=== PATIENT | male | born 1955 | race Caucasian/White ===

== ENCOUNTER 2016-10-10 17:02 | Inpatient (IN) | payer MEDICARE ==
[~2016-10-10] VITALS: Ht 193 cm; Wt 205.0 kg
[2016-10-10] VITALS (244 sets, daily range): BP systolic 150–153; BP diastolic 73–74; PULSE 92–100; TEMP 98.1–98.5; O2SAT 64–100
[~2016-10-10 17:02] MED LIST: ASPI325T6 PO; COLACE 100100 MG/CAP PO; DAZIDOX10 MG PO; FLEXERIL 1010 MG/TAB PO; GLUCOPHAGE1000 MG PO; IPRATROPIUM BROM3 M1 IH; K-DUR20 MEQ PO; LANTUS SOLOS100 U/ML SQ; LASIX 80MG TABL80 MG PO; LINZESS145CAP PO; LIPITOR 40MG TA40 MG PO; LOPRESSOR 225 MG/TAB PO; MILK OF MA400 MG/52 PO; NEXIUM 40MG40 MG PO; NITROSTAT0.4 MG/TAB SL; NYAMYC100000 U/G TOP; OXYCONTIN 20MG20 MG PO; OXYCONTIN 80MG80 MG PO; PLAVIX 75MG TAB75 MG PO; PREDNISONE10 MG PO; RESTORIL 1515 MG/CAP PO; ROXICODONE 55 MG/TAB PO; SORE THROAT LOZ1 LO1 MM; SUDAFED30 MG PO; TRIAMCINOLONE A15 G3 TP; TYLENOL 325MG325 MG PO; VICTOZA6 MG/ML SQ; VIIBRYD20 MG PO; XANAX 1MG1 MG PO; ZOFRAN 4MG T4 MG/TAB PO
[2016-10-10] MEDS ORDERED: XANAX 1MG1 MG PO (18:36)
[2016-10-10] MEDS ORDERED: TOPROL XL 50MG50 MG PO (18:36)
[2016-10-10] MEDS ORDERED: NITROSTAT0.4 MG/TAB SL (18:37)
[2016-10-10] MEDS ORDERED: RESTORIL 1515 MG/CAP PO (18:38)
[2016-10-10] MEDS ORDERED: ASPIRIN E.C. 8181 MG PO (18:39)
[2016-10-10] MEDS ORDERED: FERROUS SU325 MG/TAB PO (18:40)
[2016-10-10] MEDS ORDERED: ASPI325T6 PO (18:40)
[2016-10-10] MEDS ORDERED: VITAMIN D32000 IU PO (18:41)
[2016-10-10] MEDS ORDERED: VICTOZA6 MG/ML SQ (18:42)
[2016-10-10] MEDS ORDERED: METHYL FOLATE (18:43)
[2016-10-10 20:05] LABS: B-TYPE NATRIURETIC PEPTIDE 132 pg/mL (0-125)
[2016-10-10 20:06] LABS: TROPONIN-I < 0.012 ng/mL (0.000-0.034)
[2016-10-10 20:24] LABS: THYROID STIMULATING HORMONE 0.418 uIU/mL (0.465-4.680)
[2016-10-11] VITALS (464 sets, daily range): BP systolic 129–143; BP diastolic 50–84; PULSE 70–101; TEMP 97.8–98.9; O2SAT 50–100
[2016-10-11 06:55] LABS: BASO % 0.5 % (0.0-2.0); EOS % 0.5 % (0-4.0); GRAN # 1.7 (1.4-6.5); LYMPH # 1.4 (1.2-3.4); LYMPH % 37.3 % (20.0-51.0); MEAN CELL VOLUME 79 fl (80.0-100.0); MEAN CORPUSCULAR HGB CONC 32 g/dl (33.0-37.0); MEAN PLATELET VOLUME 10.5 fl (7.4-10.4); MONO # 0.5 (0.1-0.6); MONO % 14.4 % (1.7-9.3); PLATELET COUNT 81 K/mm3 (130-400); RED BLOOD COUNT 4.17 M/mm3 (4.20-5.60); REDCELL DISTRIBUTION WIDTH-CV 16.3 % (11.5-14.5); WHITE BLOOD COUNT 3.7 K/mm3 (4.8-10.8)
[2016-10-11 07:06] LABS: CALCIUM 8.4 mg/dL (8.4-10.2); CREATININE, serum 0.6 mg/dL (0.66-1.25); POTASSIUM 3.8 mmol/L (3.4-5.0)
[2016-10-11 07:07] LABS: HEMATOCRIT 32.8 % (42.0-52.0); HEMOGLOBIN 10.4 g/dl (13.5-18.0); MEAN CORPUSCULAR HEMOGLOBIN 25 pg (27.0-31.0)
[2016-10-11 20:29] LABS: PH 6 (5-8); SQUAMOUS EPITHELIAL None Seen /hpf; URINE APPEARANCE Clear; URINE BACTERIA None Seen /hpf; URINE BILIRUBIN Negative (NEGATIVE); URINE BLOOD 1+ (NEGATIVE); URINE COLOR Yellow; URINE GLUCOSE 1+ (NEGATIVE); URINE KETONE Negative (NEGATIVE); URINE RBC 0-2 /hpf; URINE UROBILINOGEN >=4.0 mg/dL (NEGATIVE); URINE WBC 0-2 /hpf
[2016-10-12 02:28] VITALS: BP 133/52; PULSE 71; TEMP 98.1
[2016-10-12 07:18] LABS: BASO % 0.5 % (0.0-2.0); EOS # 0.1 (0.0-0.7); GRAN % 49.4 % (42.2-75.2); LYMPH # 1.5 (1.2-3.4); MEAN CELL VOLUME 81 fl (80.0-100.0); MEAN CORPUSCULAR HGB CONC 31 g/dl (33.0-37.0); MEAN PLATELET VOLUME 10.2 fl (7.4-10.4); MONO # 0.4 (0.1-0.6); MONO % 9.6 % (1.7-9.3); PLATELET COUNT 79 K/mm3 (130-400); RED BLOOD COUNT 4.17 M/mm3 (4.20-5.60); REDCELL DISTRIBUTION WIDTH-CV 16.7 % (11.5-14.5)
[2016-10-12 07:34] LABS: CALCIUM 8.5 mg/dL (8.4-10.2); CREATININE, serum 0.79 mg/dL (0.66-1.25); POTASSIUM 3.5 mmol/L (3.4-5.0)
[2016-10-12 07:35] LABS: HEMATOCRIT 33.6 % (42.0-52.0); HEMOGLOBIN 10.4 g/dl (13.5-18.0); MEAN CORPUSCULAR HEMOGLOBIN 25 pg (27.0-31.0)
[2016-10-12 08:04] VITALS: BP 123/54; PULSE 71; TEMP 97.7
[2016-10-12 12:06] VITALS: BP 119/57; PULSE 70; TEMP 98
[2016-10-12 15:49] VITALS: BP 128/52; PULSE 66; TEMP 98.5
[2016-10-12 19:12] VITALS: BP 125/50; PULSE 71; TEMP 98.3
[2016-10-12 22:46] VITALS: BP 108/49; PULSE 66; TEMP 98.6
[2016-10-13 02:30] VITALS: BP 123/56; PULSE 72; TEMP 98.1
[2016-10-13 07:30] VITALS: BP 107/71; PULSE 76; TEMP 97.6
== END 2016-10-13 11:17 | disposition home or self-care (01) | DRG 948 ==
LOC: IMCU 17:02 → MEDICAL 10-11 18:35
PROVIDERS: Internal Medicine; Nurse Practitioner Family
DX: R41.82 Altered mental status, unspecified (principal); Z68.43 Body mass index [BMI] 50.0-59.9, adult; E66.01 Morbid (severe) obesity due to excess calories; I10 Essential (primary) hypertension; E11.9 Type 2 diabetes mellitus without complications; I87.8 Other specified disorders of veins; F41.9 Anxiety disorder, unspecified; G47.33 Obstructive sleep apnea (adult) (pediatric); D72.819 Decreased white blood cell count, unspecified; T42.4X5A Adverse effect of benzodiazepines, initial encounter; T49.4X5A Adverse effect of keratolytics, keratoplastics, and other hair treatment drugs and preparations, initial encounter; T40.2X5A Adverse effect of other opioids, initial encounter; Z87.891 Personal history of nicotine dependence; Z79.84 Long term (current) use of oral hypoglycemic drugs
CPT/HCPCS: 99223-AI; 99232-AI; 99239; J1650; J1815; J1956; J7030